=== PATIENT | female | born 1960 | race Two or more races ===

== ENCOUNTER 2024-10-13 18:24 | Emergency (ER) | payer BC ==
[2024-10-13] VITALS (7 sets, daily range): BP systolic 162; BP diastolic 78; TEMP 98.4; O2SAT 92–100
[~2024-10-13] VITALS: Ht 152.4 cm; Wt 129.7 kg
[2024-10-13] MEDS: IPRATROPIUM NEB FS 0.5 MG/2.5 ML AMPUL.NEB NEB ONE ×2 (19:16→20:26)
[2024-10-13] MEDS: ALBUTEROL FS 2.5 MG/3 ML VIAL.NEB CONTNEB ONE ×2 (19:16→20:26)
[2024-10-13] MEDS ORDERED: IPRATROPIUM NEB FS 0.5 MG/2.5 ML AMPUL.NEB ONE ×2 (19:20→20:27)
[2024-10-13] MEDS ORDERED: ALBUTEROL FS 2.5 MG/3 ML VIAL.NEB ONE ×2 (19:20→20:27)
[2024-10-13] MEDS ORDERED: methylPREDNISolone SOD SUCC 125 MG/2ML VIAL ONE (19:26)
[2024-10-13] MEDS ORDERED: Magnesium 1GM/D5W 100ML PREMIX 100 ML IV ONE (19:26)
[2024-10-13] MEDS: methylPREDNISolone SOD SUCC 125 MG/2ML VIAL IV ONE (19:32)
[2024-10-13] MEDS: Magnesium 1GM/D5W 100ML PREMIX 200 ML IV ONE (19:32)
[2024-10-13 19:38] LABS: BASOPHILS % (AUTO) 0.8 % (0.0-2.0); EOSINOPHILS # (AUTO) 0.1 K/uL (0.0-0.7); EOSINOPHILS % (AUTO) 4.6 % (0.0-6.0); HEMATOCRIT 35 % (33-45); HEMOGLOBIN 11.5 g/dL (11.5-14.8); LYMPHOCYTES # (AUTO) 0.9 K/uL (0.8-4.8); MEAN CORPUSCULAR HEMOGLOBIN 27 PG (26.0-33.0); MEAN CORPUSCULAR HGB CONC 33 g/dl (31.0-36.0); MEAN CORPUSCULAR VOLUME 81 fL (82-100); MONOCYTES # (AUTO) 0.5 K/uL (0.1-1.30); NEUTROPHILS # (AUTO) 1.4 K/uL (1.8-8.9); NEUTROPHILS % (AUTO) 47.6 % (43.0-81.0); PLATELET COUNT (AUTO) 145 K/uL (150-450); RED BLOOD CELL COUNT(AUTO) 4.34 MIL/uL (4.0-5.2); WHITE BLOOD COUNT (AUTO) 2.9 K/uL (4.3-11.0)
[2024-10-13 19:39] LABS: CALCIUM, SERUM 8.7 mg/dL (8.5-10.1); POTASSIUM 4.5 mmol/L (3.5-5.1)
[2024-10-13 20:00] LABS: BASOPHILS % (MANUAL) 0 % (0.0-2.0); EOSINOPHILS % (MANUAL) 4 % (0-4); LYMPHOCYTES % (MANUAL) 29 % (16-48); MONOCYTES % (MANUAL) 13 % (0-11.0); NEUTROPHILS % (MANUAL) 54 (42-76)
[2024-10-13 20:01] LABS: ANISOCYTOSIS 1+; PLATELET ESTIMATE DECREASED
[2024-10-13] MEDS ORDERED: ACETAMINOPHEN ES 500 MG TABLET ONE (20:26)
[2024-10-13] MEDS ORDERED: EPINEPHRINE (1:1000) 1 MG/ML AMPUL ONE (20:44)
[2024-10-13] MEDS ORDERED: ALBU8.5H8 INH (20:46)
[2024-10-13] MEDS ORDERED: PRED50TA PO (20:46)
[2024-10-13] MEDS: EPINEPHRINE (1:1000) 1 MG/ML AMPUL SUBCUT ONE (20:51)
== END 2024-10-13 21:20 | disposition home or self-care (01) ==
LOC: EDBD 18:33 → ER 18:33
DX: J45.901 Unspecified asthma with (acute) exacerbation (principal); E66.01 Morbid (severe) obesity due to excess calories; R07.89 Other chest pain; Z20.822 Contact with and (suspected) exposure to COVID-19
CPT/HCPCS: 99285; 96365; 71045; 96375; 87426; 93005; 87804 ×2; 85025; 80048; 36415; 94640; 85007; J0171; J2919; J3475; A4223